=== PATIENT | female | born 1990 | race Hispanic/Latino ===

== ENCOUNTER 2017-05-28 15:48 | Outpatient (CLI) | payer SELFPAY | END 2017-05-28 15:49 | disposition home or self-care (01) | LOC: BICULT 15:48 | PROVIDERS: ATTEND Physician Assistant | DX: R10.32 Left lower quadrant pain (principal); N83.8 Other noninflammatory disorders of ovary, fallopian tube and broad ligament | CPT/HCPCS: 76856 ==

== ENCOUNTER 2017-08-19 07:13 | Emergency (ER) | payer SELFPAY ==
[2017-08-19] MEDS ORDERED: Lidocaine 1% PF 5 ML VIAL ONE (07:33)
[2017-08-19] MEDS ORDERED: Bupivacaine 0.5% 10 ML VIAL ONE (08:04)
[2017-08-19] MEDS ORDERED: Bacitracin Zinc 1 Packet ONE (08:34)
== END 2017-08-19 08:48 | disposition home or self-care (01) ==
LOC: ERS 07:13
DX: S61.011A Laceration without foreign body of right thumb without damage to nail, initial encounter (principal); W26.0XXA Contact with knife, initial encounter
CPT/HCPCS: 12001; J2001; J3490

== ENCOUNTER 2018-04-28 15:38 | Emergency (ER) | payer OTHER, SELFPAY ==
[2018-04-28] MEDS ORDERED: Ketorolac Tromethamine 60 MG/2 ML VIAL ONE (16:16)
== END 2018-04-28 17:27 | disposition home or self-care (01) ==
LOC: ERS 15:38
DX: S16.1XXA Strain of muscle, fascia and tendon at neck level, initial encounter (principal); M25.511 Pain in right shoulder; V43.52XA Car driver injured in collision with other type car in traffic accident, initial encounter
CPT/HCPCS: 96372; J1885

== ENCOUNTER 2023-07-08 02:51 | Emergency (ER) | payer OTHER, SELFPAY | END 2023-07-08 03:40 | LOC: ERS 02:51 → EEVIPCON 02:51 → ERS 03:40 | DX: F10.129 Alcohol abuse with intoxication, unspecified (principal) | CPT/HCPCS: 36416; 99284 ==